=== PATIENT | female | born 1965 | race Caucasian/White ===

== ENCOUNTER → 2025-08-23 10:53 | Outpatient (BNVA) | payer OTHER, MEDICAID, SELFPAY | PROVIDERS: Referring Provider Nurse Practitioner Family; Visit Provider Internal Medicine Rheumatology | DX: M25.50 Pain in unspecified joint (principal) | CPT/HCPCS: 36415; 82306; 83520; 86200; 86431; 86480; 86704; 86803; 87340 ==